=== PATIENT | male | born 1960 | race African-American/Black ===

== ENCOUNTER 2017-10-21 06:05 | Inpatient (IN) | payer BC ==
[~2017-10-21] VITALS: Ht 188 cm; Wt 159.2 kg
[2017-10-21] VITALS (82 sets, daily range): BP systolic 62–161; BP diastolic 13–107
--- NOTE | ~2017-10-21 | DEA ---
[facility] [place] [address] SUMMARY Name: MALISSA GUTIERREZ Room #: 236-P [facility] IN M.R.#: [id number] Admission: 10/21/17 Attend Phys: Gerson Johnson MD Discharge: 10/21/17 Date of : 62 Report #: [id number] THIS REPORT FOR: //name// CC: Rancho Johnson DATE OF SERVICE: 10/21/2017 DISCHARGE/ SUMMARY DIAGNOSES: 1. Severe sepsis. 2. Acute renal failure. 3. Acute respiratory failure. 4. Hemoptysis. 5. Coronary artery disease. 6. History of congestive heart failure in the past. 7. History of diabetes. 8. Hypernatremia. 9. Pneumonitis. CONSULTANTS: Dr. Macdonald from pulmonary and Dr. Méndez from infectious disease. HOSPITAL COURSE: The patient is a 57-year-old male with history of hypertension, diabetes, congestive heart failure, coronary artery disease, status post stent 6 years ago presented to the emergency room complaining of shortness of breath. Please look at the history and physical examination dictated by me. The patient has been sick for the last couple of days. He has been coughing of brown to black sputum. He also had a low grade fever, multiple members in the family had flu like symptoms. On admission, his blood pressure was low. His white count was 11.2. His initial ABG showed a pH of 7.374 and pO2 of 38. His chest x-ray showed pulmonary vascularity within normal limits, mild interstitial prominence. The patient was hydrated with IV fluid and then he was admitted to the ICU, started on broad spectrum antibiotic. He was evaluated by lamp decorator and infectious disease. The patient's respiratory status deteriorated and the patient was subsequently intubated. He also underwent a fiberoptic bronchoscopy with serial lavage of the left upper lobe secondary to hemoptysis. His hospital course was marked by severe leukopenia where his white count dropped to 1.7. He also had acute renal failure, creatinine going up to 4.1. He had severe metabolic and respiratory acidosis. The patient went into cardiac arrest several times and he was resuscitated by ACLS protocol. After several [facility] [address] [place] [address] SUMMARY Name: MALISSA GUTIERREZ Room #: 236-P [facility] IN M.R.#: [id number] Admission: 10/21/17 Attend Phys: Gerson Johnson MD Discharge: 10/21/17 Date of : 62 Report #: [id number] codes, the family decided to make him comfortable and the decided no more codes. The on 10/21/2017. <ELECTRONICALLY SIGNED> By: Gerson Johnson MD 11/08/17 1859 1417 1519 Gerson Johnson MD /nt
--- NOTE | ~2017-10-21 | HC ---
[facility] [place] [address] CONSULTATION Name: MALISSA GUTIERREZ Room #: 236-P [facility] IN M.R.#: [id number] Admission: 10/21/17 Attend Phys: Gerson Johnson MD Discharge: 10/21/17 Date of : 62 Report #: [id number] THIS REPORT FOR: //name// CC: Rancho Johnson REASON FOR PRESENTATION: Shortness of breath and hemoptysis. HISTORY OF PRESENT ILLNESS: A 57-year-old with past medical history of coronary artery disease post-stent, history of heart failure per the , diabetes mellitus, hypertension. No known previous kidney problems per the family. He had been feeling well in the last couple of days. This has progressed. He started to have shortness of breath associated with significant hemoptysis and low grade temperature. mentioned that there had been some flu-like illness running in the family. No reported nausea or vomiting. From the renal perspective, she is not aware of any previous kidney problems; however, she tells me that he has been on multiple heart failure medications including Aldactone, hydrochlorothiazide, besides some other medications. When he presented to the Emergency Room, he was hypoxic. He was also hypotensive and was found to have an elevated creatinine at 3.2 mandating a Nephrology consultation. ALLERGIES: None. PAST MEDICAL HISTORY: 1. Diabetes mellitus. 2. Hypertension. 3. Coronary artery disease. 4. Status post cardiac catheterization and stent. 5. Heart failure with unknown ejection fractions. MEDICATIONS: 1. Losartan. 2. K-Dur. 3. Naproxen. 4. Janumet. 5. Plavix. 6. Aldactone. 7. Aspirin. 8. Coreg. 9. Lasix. 10. Invokana. SOCIAL HISTORY: Denies alcohol or drug abuse. He quit smoking 20 years ago and back to smoking couple of months ago. FAMILY HISTORY: Significant for hypertension and diabetes mellitus. [facility] [address] [place] [address] CONSULTATION Name: MALISSA GUTIERREZ Room #: 236-P [facility] IN ..#: [id number] Admission: 10/21/17 Attend Phys: Gerson Johnson MD Discharge: 10/21/17 Date of : 62 Report #: [id number] REVIEW OF SYSTEMS: CONSTITUTIONAL: As per the history of present illness. CARDIOVASCULAR: As per the history of present illness. PULMONARY: As per the history of present illness. GASTROINTESTINAL: Decreased p.o. intake. GENITOURINARY: No frequency, no urgency. NEUROLOGICAL: No numbness, no weakness. SKIN: No rash or ulcerations. PHYSICAL EXAMINATION: GENERAL: The patient is on BiPAP. VITAL SIGNS: Blood pressure is marginal at 85/51. Pulse rate is 100. HEAD AND NECK: No jugular venous distention. CHEST: Decreased air entry bilaterally. CARDIOVASCULAR: No rub detected. ABDOMEN: Soft, nontender. LOWER EXTREMITIES: No edema. IMAGES: Reviewed. There is some sort of bilateral lower lobe infiltrates. LABORATORY VALUES: Reviewed. White blood cell count 11.1. Chemistry revealed sodium of 126, potassium of 5, chloride of 91, BUN of 32, creatinine of 3.1, blood sugar of 553. ASSESSMENT, IMPRESSION AND PLAN: 1. Acute kidney injury. 2. Respiratory failure. 3. Hyperkalemia. 4. Hypotension with sepsis. 5. History of heart failure. 6. History of coronary artery disease. 7. Blood sugar out of control. 8. We will start investigations for the acute kidney injury with appropriate imaging and laboratory values. 9. This is likely due to hypotension while taking numerous blood pressure medications, potassium, Janumet, naproxen. 10. Stop offending any nephrotoxic agents. 11. Blood pressure support. 12. Septic workup. 13. Appropriate antibiotic. 14. Follow cultures. 15. Strict input and output. 16. We will continue to follow along and adjust the medications and the treatment plans accordingly. 17. [place]bt[place] [address] CONSULTATION Name: MALISSA GUTIERREZ Room #: 236-P [facility] IN M.R.#: [id number] Admission: 10/21/17 Attend Phys: Gerson Johnson MD Discharge: 10/21/17 Date of : 62 Report #: [id number] 18. Obtain cardiac echo. Very sick and ill patient and condition might deteriorate at any point. <ELECTRONICALLY SIGNED> By: Paty Herman MD 10/25/17 0953 1058 1239 Paty Herman MD /ernesto
--- NOTE | ~2017-10-21 | HC ---
[facility] [place] [address] CONSULTATION Name: MALISSA GUTIERREZ Room #: 236-P [facility] IN M.R.#: [id number] Admission: 10/21/17 Attend Phys: Gerson Johnson MD Discharge: Date of : 62 Report #: [id number] THIS REPORT FOR: //name// CC: Rancho Johnson REASON FOR CONSULTATION: I was asked to evaluate concerning bilateral pulmonary infiltrates and respiratory failure. HISTORY OF PRESENT ILLNESS: The patient was a 57-year-old with underlying history of coronary artery disease, hypertension, diabetes. Over the past 3 days, he has had increasing cough, shortness of breath and dark colored sputum. His family members have also been ill with upper respiratory tract infection symptoms. No documented fever. No pleuritic chest pain. Progressive dyspnea necessitated evaluation in the Emergency Room. Here, he had bilateral basilar interstitial changes. He developed respiratory failure, now intubated. It is noted at the time of intubation, he had carissa bloody sputum. He underwent bronchoscopy. This did not clear. I discussed the case with Pulmonary Medicine following the bronchoscopy. Hemodynamically, the patient was stable prior to his bronchoscopy, now is running pressors. Since admission, the patient has been hypotensive and tachycardic. He is receiving fluid resuscitation. He was dehydrated initial with a creatinine of 3. His initial hemoglobin was 13.9. By the time I saw him, he was already intubated. Discussed with the patient's family and Pulmonary Medicine. He has had no travel. No HIV risk factors noted. ALLERGIES: None known. MEDICATIONS: As noted on his MAR, was given azithromycin, ceftriaxone. Previously was on losartan, potassium, hydrochlorothiazide, Naprosyn, carvedilol, Janumet, atorvastatin, Plavix, aspirin, spironolactone, Lexapro, glimepiride, omeprazole, Lasix, lorazepam, tramadol, Invokana. PAST MEDICAL HISTORY: Coronary artery disease, congestive heart failure, hypertension, diabetes. FAMILY HISTORY: Noncontributory. SOCIAL HISTORY: Past smoker, no significant alcohol intake. REVIEW OF SYSTEMS: No nausea, vomiting, diarrhea, dysuria or frequency. PHYSICAL EXAMINATION: VITAL SIGNS: He is afebrile, blood pressure was 85/50, heart rate 100, FiO2 is 40%. GENERAL: He was sedated. Moderately obese. SKIN: Unremarkable. [facility] [address] [place] [address] CONSULTATION Name: MALISSA GUTIERREZ Room #: 236-P [facility] IN .R.#: [id number] Admission: 10/21/17 Attend Phys: Gerson Johnson MD Discharge: Date of : 62 Report #: [id number] LYMPH: Unremarkable. No peripheral emboli. HEENT: Conjunctivae unremarkable. Mouth was orally intubated. He had bloody secretions in his endotracheal tube and his nasogastric tube. NECK: Supple. LUNGS: Coarse bilaterally. HEART: Regular, without murmur, tachycardic. No rub or gallop. ABDOMEN: Soft, nontender, no hepatosplenomegaly or mass appreciated. EXTREMITIES: Unremarkable. No evidence of peripheral emboli. LABORATORY STUDIES: Sodium 126, potassium 5, bicarbonate 23, creatinine 3.1. Liver function test normal. ALT 28. Lactate 3.2. Troponin negative. BNP was 714, hemoglobin 13.9, white count was 11.1 with 72% segs, 7% bands, 4% lymphs, 16% monocytes, platelet count 157,000. Urinalysis, 3+ glucose. ABG on 100% showed a pO2 of 98, pCO2 of 58, pH 7.14. Renal ultrasound negative. Chest x-ray, bilateral interstitial infiltrates, mostly in the bases. IMPRESSION: Bilateral pulmonary infiltrates with hemoptysis and respiratory failure. He has hypotension and findings consistent with capillaritis. He is anticoagulated, having been on Plavix, aspirin and nonsteroidal anti-inflammatory. Would be concerned about viral respiratory infection, most likely given his presentation. Vasculitis would also be considered. Given this scenario of diabetes, hypertension and what I would suspect dehydration, most likely explains his renal failure, but pulmonary renal syndrome would also be a consideration. He does have underlying coronary disease with no evidence of ischemia at this time. Would recommend further workup including vasculitis workup, human immunodeficiency virus, viral respiratory panel as well as full cultures from his bronchoscopy for bacteria, Legionella, fungus and AFB. We will continue with broad spectrum antibiotic coverage adjusted for his renal failure. Serial laboratory studies including CBC and chemistry. I have discussed the case with Pulmonary Medicine, the patient's family and nursing staff. <ELECTRONICALLY SIGNED> By: Jc Méndez MD 10/21/17 1949 1422 1738 Jc Méndez MD /nt
--- NOTE | ~2017-10-21 | EKG ---
[address] [address] ELECTROCARDIOGRAM REPORT Name: MALISSA GUTIERREZ Room #: 236-P ADM IN M.R.#: [id number] Admission: 10/21/17 Attend Phys: Gerson Johnson MD Discharge: Date of : 62 Report #: [id number] THIS REPORT FOR: //name// [facility] Test Date: 2017-10-21 Test Time: 15:30:50 Pat Name: MALISSA GUTIERREZ Department: Room: 236 P Gender: M Library Technical Assistant: ag : 1960 Requested By: Ant Santos Order Number: [id number] MD: Keaton Gallegos Measurements Intervals [place] Rate: 122 P: 83 [place]: 147 QRS: 8 QRSD: 131 T: 261 QT: 275 QTc: 392 Interpretive Statements Sinus tachycardia vs Atrial tachycardia Electronically Signed On 10-21-2017 19:00:58 MANAGER PATIENT by Keaton Gallegos [email or web address] <ELECTRONICALLY SIGNED> By: Keaton Gallegos MD 10/21/17 1900 1530 1530 Keaton Gallegos MD /LOW
--- NOTE | ~2017-10-21 | EKG ---
[place] [address] [facility] [place] [address] ELECTROCARDIOGRAM REPORT Name: MALISSA GUTIERREZ Room #: 236-P ADM IN M.R.#: [id number] Admission: 10/21/17 Attend Phys: Gerson Johnson MD Discharge: Date of : 62 Report #: [id number] THIS REPORT FOR: //name// [facility] ED Test Date: 2017-10-21 Test Time: 06:29:00 Pat Name: MALISSA GUTIERREZ Department: Room: 236 Gender: M Conveyor Monitor: PINO : 1960 Requested By: Radha Pacheco Order Number: [id number] MD: Siva Krause Measurements Intervals [place] Rate: 106 P: 50 NM: 175 QRS: 27 QRSD: 126 T: 5 QT: 356 QTc: 473 Interpretive Statements Sinus tachycardia Nonspecific intraventricular conduction delay Baseline wander in lead(s) V4 No previous ECG available for comparison Electronically Signed On 10-21-2017 10:16:21 MULTIPLE PRESSURE RIVETER OPERATOR by Siva Krause [email or web address] <ELECTRONICALLY SIGNED> By: Siva Krause MD, [facility] 10/21/17 1016 0629 8 Siva Krause MD, FACC /EPI
--- NOTE | ~2017-10-21 | H ---
[facility] [place] [address] HISTORY AND PHYSICAL Name: MALISSA GUTIERREZ Room #: 236-P ADM IN M.R.#: [id number] Admission: 10/21/17 Attend Phys: Gerson Johnson MD Discharge: Date of : 62 Report #: [id number] THIS REPORT FOR: //name// CC: Rancho Johnson DATE OF SERVICE: 10/21/2017 CHIEF COMPLAINT: Cough, expectoration and shortness of breath. HISTORY OF PRESENT ILLNESS: The patient is a 57-year-old male with history of hypertension, coronary artery disease status post stent 6 years ago, history of diabetes and hypertension, and history of CHF, who presented to the Emergency Room complaining of shortness of breath. The patient has been sick over the last 2 to 3 days, he has had cough with brown to black sputum. He has had some low-grade fever. Apparently, multiple family members have been sick with flu-like illness. The patient denies any dizziness. No chest pain. No nausea or vomiting, no diarrhea. He does have history of coronary artery disease and had a stent 6 years ago. The patient last saw a poured concrete wall technician 3 years ago. He does have history of CHF and has been on multiple medications including Aldactone, hydrochlorothiazide and Lasix. The patient has not had an echocardiogram in several years. He does have history of sleep apnea and uses BiPAP at home. When EMS arrived, he was hypoxic. He was saturating around 70% on room air and he was placed on a BiPAP and was given DuoNeb and 80 mg of Lasix by the EMS. On arrival to the Emergency Room, the patient was noticed to be markedly hypotensive. His initial blood pressure was 94/55, then it dropped to 73/51. PAST MEDICAL HISTORY: Significant for: 1. Hypertension. 2. Diabetes. 3. Coronary artery disease status post stent 6 years ago. 4. History of CHF. 5. The patient denies any kidney disease. No history of any stroke. No history of any cancer. No peptic ulcer disease or bleeding disorder. ALLERGIES: No known drug allergy. HOME MEDICATIONS: Include losartan, K-Dur, hydrochlorothiazide, naproxen, Coreg, Janumet, Plavix, atorvastatin, Aldactone, aspirin, Lexapro, glimepiride, Protonix, Lasix 40 once a day, lorazepam p.r.n., tramadol and Invokana. Please look at the nursing documentation for dosages. SOCIAL HISTORY: He stopped smoking around 20 years ago, then he started smoker about 6 months ago. Apparently, he stopped smoking 2 days ago. No history of [address] [address] HISTORY AND PHYSICAL Name: MALISSA GUTIERREZ Room #: 236-P [facility] IN M.R.#: [id number] Admission: 10/21/17 Attend Phys: Gerson Johnson MD Discharge: Date of : 62 Report #: [id number] alcohol abuse or illicit drug abuse. The patient lives with his . His is at bedside. FAMILY HISTORY: Significant for hypertension and diabetes. REVIEW OF SYSTEMS: CONSTITUTIONAL: No recent weight loss, weight gain. He has had some low-grade fever. EYES: No change in vision. THROAT: Denies any sore throat. CARDIOVASCULAR: No chest pain. No palpitation, no dizziness. RESPIRATORY: As above. GASTROINTESTINAL: No nausea, vomiting, abdominal pain. GENITOURINARY: No dysuria, hematuria. NEUROLOGIC: No focal numbness or weakness of the extremity. PSYCHIATRIC: No anxiety or depression. The 12-point review of system is negative other than the positive and negative dictated in the history of present illness and the review of system. PHYSICAL EXAMINATION: VITAL SIGNS: Blood pressure 76/45, heart rate of 100 per minute. He is breathing 30 per minute. GENERAL: The patient is awake and alert. He is in [id number] respiratory distress, appears very anxious. EYES: Pupils equal, reactive to light. Throat: He has a dry oral mucosa. NECK: Supple, no JVD, no bruit, no lymphadenopathy. CARDIOVASCULAR SYSTEM: S1, S2, no S3. There is systolic murmur. CHEST: Bilateral air entry present, coarse breath sounds, few scattered wheezes noted. ABDOMEN: Soft, bowel sounds present, no mass, no organomegaly, no tenderness. PERIPHERY: No pedal edema. No calf tenderness. Dorsalis pedis 1+. NEUROLOGICAL: No gross motor or sensory deficit. LABORATORY DATA: Reviewed. White count is 11.1, hemoglobin 13.8, differential is 72% segs, platelet is 151. ABG showed a pH of 7.374, pCO2 of 38, pO2 is 82. Chemistry showed sodium of 126, potassium is 5, BUN and creatinine are markedly elevated at 32 and 3.1. Glucose was 553. Lactic acid is 2.9. Troponin is less than 0.04. BNP 714. EKG showed sinus tachycardia, nonspecific intraventricular conduction delay. IMAGING: Chest x-ray showed pulmonary vascularity within normal limits. There is mild interstitial prominence in the middle and the lower lungs bilaterally, which could be interstitial pneumonitis. ASSESSMENT AND PLAN: [facility] [address] [place] [address] HISTORY AND PHYSICAL Name: MALISSA GUTIERREZ Room #: 236-P ADM IN M.R.#: [id number] Admission: 10/21/17 Attend Phys: Gerson Johnson MD Discharge: Date of : 62 Report #: [id number] 1. Acute respiratory failure secondary to pneumonitis. The patient will be placed on BiPAP. Pulmonary will be consulted. Pneumonitis, the patient will be on IV ceftriaxone and Zithromax. We will order sputum culture and sensitivity and also blood cultures. We will also check on influenza. We will repeat a chest x-ray in the morning. 2. History of hypertension/sepsis The patient will be hydrated with IV fluids. We will start him on Levophed if his systolic blood pressure does not improve with hydration. The patient will be admitted to the ICU. We will repeat his lactic acid at 3 hours. 3. History of congestive heart failure, no recent echocardiogram. I went ahead and ordered an echocardiogram and also do serial troponin. We will consult poured concrete wall technician. 4. History of coronary artery disease status post stent 6 years ago. We will repeat a troponin in 3 hours. 5. History of diabetes. Blood sugar uncontrolled at present, start him on insulin drip at present. 6. Hyponatremia secondary to dehydration/hyperglycemia. We will continue with normal saline and recheck his labs in the morning. 7. Acute renal failure, likely prerenal secondary to dehydration along with use of diuretics. We will hydrate with IV fluids. Renal ultrasound has been requested. We will consult Nephrology. I have also ordered a bladder scan. 8. Deep venous thrombosis prophylaxis. He will be on heparin for DVT prophylaxis. Treatment plan has been explained to the patient and the patient's at bedside in detail. <ELECTRONICALLY SIGNED> By: Gerson Johnson MD 10/21/17 1248 0929 0959 Gerson Johnson MD /nt
--- NOTE | ~2017-10-21 | HC ---
[facility] [place] [address] CONSULTATION Name: MALISSA GUTIERREZ Room #: 236-P [facility] IN M.R.#: [id number] Admission: 10/21/17 Attend Phys: Gerson Johnson MD Discharge: 10/21/17 Date of : 62 Report #: [id number] THIS REPORT FOR: //name// CC: Rancho Johnson HISTORY OF PRESENT ILLNESS: The patient is a 57-year-old gentleman with diabetes and tobacco dependency. He has history of coronary artery disease with remote stenting by Dr. Perez about 6 years ago. He now presents with a several day history of fevers, productive cough; Yesterday, he had hemoptysis. Multiple family members have had influenza. He was seen in the emergency department with respiratory distress and hypoxemia. He denies chest heaviness or pressure. It has been a number of years since he has been seen by Dr. Perez. There has been no recent orthopnea, paroxysmal nocturnal dyspnea or lower extremity edema. He has had intermittent chest pain with coughing, but other than this, no symptoms to suggest angina. No recent medicine changes. CURRENT MEDICATIONS: Include losartan 100 mg daily, potassium 20 mEq daily, hydrochlorothiazide 12.5 mg daily, carvedilol 25 mg twice daily, Janumet 100/1000 one tablet daily, atorvastatin 40 mg daily, Plavix 75 mg daily, spironolactone 25 mg daily and aspirin, Lexapro 20 mg daily, glimepiride 4 mg daily, Nexium 40 mg daily, Lasix 40 mg daily, tramadol, and Invokana 300 mg daily. PAST MEDICAL HISTORY: Medical records have been reviewed and include a history of coronary artery disease with remote stenting, sleep apnea for which he uses bypass, hypertension, diabetes, and history of congestive heart failure. SOCIAL HISTORY: Quit smoking about 15 years ago, he started up about 6 months ago. Lives with his . FAMILY HISTORY: Notable for hypertension and diabetes. REVIEW OF SYSTEMS: All systems negative except as that noted above. PHYSICAL EXAMINATION: GENERAL: Reveals an alert gentleman, he is in respiratory distress. VITAL SIGNS: Blood pressure is 85/51, heart rate of 100 and regular, temperature is 97.4 degrees, 6 feet 2 inches tall, 340 pounds. HEENT: There are neither xanthelasma, subcutaneous xanthomata, oral mucosal or digital cyanosis or kyphoscoliosis present. CHEST: Reveals bilateral rhonchi. CARDIAC: Reveals distant regular rate and rhythm with normal S1, S2. ABDOMEN: Soft, obese and nontender. EXTREMITIES: Without cyanosis, clubbing, or edema. Radial pulses are 2+. NEUROLOGIC: He is alert with a nonfocal exam. [facility] [address] [place] [address] CONSULTATION Name: MALISSA GUTIERREZ Room #: 236-P [facility] IN M.R.#: [id number] Admission: 10/21/17 Attend Phys: Gerson Johnson MD Discharge: 10/21/17 Date of : 62 Report #: [id number] LABORATORY DATA: Sodium 126, potassium 5.0, creatinine 3.1, and glucose 553. Troponin 0. ProBNP is 714. White count 11,000, hemoglobin 13.9, hematocrit 41, platelet count 151 with 72% neutrophils. Chest x-ray demonstrates normal pulmonary vascularity, normal heart size. There is interstitial prominence. Blood gas 7.16, pCO2 58, pO2 98, lactate 3.71. IMPRESSION: 1. Septic shock, suspect pulmonary source. 2. Coronary artery disease with remote stenting. 3. Respiratory failure; recent hemoptysis. 4. Renal failure. 5. Tobacco dependency. 6. Sleep apnea. 7. Severe hyponatremia. RECOMMENDATIONS: 1. Echocardiogram with Doppler. 2. Obtain details of coronary stenting procedure from [facility], this has been requested. 3. At this point, I do not suspect volume overload/congestive heart failure as the etiology of his hypoxemia if anything appears volume depleted. I have discussed these issues with Dr. Johnson, I agree with ID, pulmonary and renal evaluations as had been ordered. Thank you for asking me to participate in the care of this critically ill gentleman. <ELECTRONICALLY SIGNED> By: Siva Krause MD, FACC 10/23/17 0853 [id number] 1551 Siva Krause MD, FACC /nt
--- NOTE | ~2017-10-21 | P ---
[facility] [place] [address] PROCEDURE REPORT Name: MALISSA GUTIERREZ Room #: 236-P [facility] IN M.R.#: [id number] Admission: 10/21/17 Attend Phys: Gerson Johnson MD Discharge: 10/21/17 Date of : 62 Report #: [id number] THIS REPORT FOR: //name// CC: Rancho Johnson DATE OF SERVICE: 10/21/2017 PROCEDURE: Fiberoptic bronchoscopy with serial lavage of the left upper lobe. 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 PROCEDURE NOTATION: The patient was already sedated on mechanical ventilatory support. Bronchoscopy equipment was brought to the bedside. Discussed with who gave verbal consent. Once accomplished, the patient received 1% lidocaine instilled down the endotracheal tube to provide topical anesthesia. Fiberoptic bronchoscope was passed down the endotracheal tube until the distal trachea was visualized. Endotracheal tube was in good position. Trachea appeared patent with no significant disease. The airways were surveyed. There was no endobronchial mass or other lesion. There was some diffuse blood noted throughout the airways, but no focal source of bleeding. Left upper lobe was chosen as site for lavage. Sequential alveolar lavage was performed with diminished bloody return with subsequent lavages, but never cleared. Specimen sent for microbiologic and cytologic tests. The patient tolerated well. No noted complications. IMPRESSION: Hemoptysis without clearing with subsequent alveolar lavages of the left upper lobe, somewhat worrisome for an alveolar hemorrhage syndrome, although findings did not show more bloody return with subsequent lavages. PLAN: 1. Await microbiologic and cytologic tests. 2. Consider high-dose systemic steroids if declines. 3. Await high resolution CT scan of the chest. 4. Await autoimmune serologies. Nothing for malignancy seen on bronchoscopy. <ELECTRONICALLY SIGNED> By: Brian Macdonald MD 10/25/17 1726 1358 1737 Brian Macdonald MD /nt
--- NOTE | ~2017-10-21 | P ---
[facility] [place] [address] PROCEDURE REPORT Name: MALISSA GUTIERREZ Room #: 236-P [facility] IN M.R.#: [id number] Admission: 10/21/17 Attend Phys: Gerson Johnson MD Discharge: 10/21/17 Date of : 62 Report #: [id number] THIS REPORT FOR: //name// CC: Rancho Johnson DATE OF SERVICE: 10/21/2017 PROCEDURE: Emergent intubation. INDICATION: Hypercapnic, hypoxemic respiratory failure and severe hemoptysis. PROCEDURE NOTATION: Called to bedside as the patient was intolerant to BiPAP, is developing worsening hypoxemia and hypercapnia, in obvious respiratory distress with significant hemoptysis. Emergent intubation was indicated. Discussed with the , the patient received 40 mg of etomidate for relaxation. Once accomplished using a MAC 4 blade, a grade 1 view of the vocal cords was noted. Significant blood noted coming from the vocal cords and in the pharynx. This was aspirated using the anchor. A size 7.5 endotracheal tube was easily advanced to 23 cm at the teeth without difficulty. Significant blood coming from the airway. Positive easy cap color change was noted. Endotracheal tube secured in place. Bilateral breath sounds noted. Chest x-ray pending at the time of dictation. <ELECTRONICALLY SIGNED> By: Brian Macdonald MD 10/25/17 1726 1256 1701 Brian Macdonald MD /ernesto
--- NOTE | ~2017-10-21 | HC ---
[facility] [place] [address] CONSULTATION Name: MALISSA GUTIERREZ Room #: 236-P [facility] IN M.R.#: [id number] Admission: 10/21/17 Attend Phys: Gerson Johnson MD Discharge: 10/21/17 Date of : 62 Report #: [id number] THIS REPORT FOR: //name// CC: Rancho Johnson MD DATE OF SERVICE: 10/21/2017 PULMONARY CONSULTATION REFERRING PROVIDER: Gerson Johnson M.D. REASON FOR CONSULTATION: Respiratory failure. CHIEF COMPLAINT: Cough and shortness of breath. HISTORY OF PRESENT ILLNESS: Our group was asked to see the patient in consultation while hospitalized in [facility]. I was asked to see the patient while in ICU. He is a 57-year-old male who is a reasonable historian, although very tachypneic, on BiPAP, with some difficulty getting history. Past pulmonary history is insignificant. He has a remote history of tobacco use, quitting 15 years ago, but no chronic pulmonary disease that he is aware of. He does carry a history of "congestive heart failure of unclear etiology". He denies any prior myocardial infarctions. Over the past 3 days, he has had some increasing shortness of breath and cough productive of what he described as dark-colored sputum, more red-brown. and other family members at home have also been ill, but not this severe and they have been treating themselves with fnbd-vcr-xwnuyty medications. Dyspnea got severe enough. He presented to the Emergency Department this morning and was found to be hypotensive in acute renal insufficiency, subsequently placed on BiPAP due to respiratory distress, given a dose of Rocephin and azithromycin. Initial influenza screen was negative. Chest x-ray showed some diminished lung volumes and some mild cardiomegaly, possible increased interstitial markings suggestive of interstitial pneumonitis. He is now in the ICU on BiPAP, resting reasonably comfortably at this time. ALLERGIES: None known. PAST MEDICAL HISTORY: 1. Congestive heart failure, exactly etiology and diagnosis unclear. He has been followed by Cardiology, but no recent echocardiograms. 2. Hypertension. 3. Diabetes mellitus type 2. 4. Coronary artery disease with stent placement. [address] [address] CONSULTATION Name: AMLISSA GUTIERREZ ENOC Room #: 236-P [facility] IN M.R.#: [id number] Admission: 10/21/17 Attend Phys: Gerson Johnson MD Discharge: 10/21/17 Date of : 62 Report #: [id number] MEDICATIONS: Include: 1. Losartan. 2. Potassium. 3. Hydrochlorothiazide. 4. Naprosyn. 5. Carvedilol. 6. Janumet. 7. Atorvastatin. 8. Plavix. 9. Spironolactone. 10. Aspirin. 11. Lexapro. 12. Glimepiride. 13. Omeprazole. 14. Lasix. 15. Lorazepam. 16. Tramadol. 17. Invokana. SOCIAL HISTORY: Remote tobacco use, quitting about 15 years ago. No significant alcohol consumption. No environmental exposures in the workplace. FAMILY HISTORY: Significant for hypertension and diabetes mellitus. REVIEW OF SYSTEMS: CONSTITUTIONAL: Denies any fever. He has had some chills and perhaps some sweats. ENT: Some upper respiratory congestion with sinus congestion. No dysphagia. CARDIOVASCULAR: No chest pains or palpitations or lower extremity edema. GASTROINTESTINAL: Notes some diminished appetite, but no nausea or vomiting. Notes diarrhea. GENITOURINARY: No dysuria, no frequency or hematuria. INTEGUMENT: Denies any rash. MUSCULOSKELETAL: No new joint pains or swellings or myalgias reported. PHYSICAL EXAMINATION: VITAL SIGNS: Temperature 36.3, pulse 100, respiratory rate in the 30s and blood pressure is 85/51. GENERAL: This is a pleasant middle-aged male, who does not appear in any distress, other than some moderate respiratory difficulties. ENT: Clear oropharynx. No thrush. NECK: Supple. No lymphadenopathy. LUNGS: Coarse rhonchi heard both in inspiration and expiration throughout. CARDIOVASCULAR: Heart is regular. I cannot appreciate any murmurs, although it is difficult to auscultate due to respiratory sounds. [facility] [address] [place] [address] CONSULTATION Name: MALISSA GUTIERREZ Room #: 236-P [facility] IN M.R.#: [id number] Admission: 10/21/17 Attend Phys: Gerson Johnson MD Discharge: 10/21/17 Date of : 62 Report #: [id number] ABDOMEN: Soft, nontender. No masses, no hepatosplenomegaly noted. EXTREMITIES: Warm, 2+ pulses noted in the periphery. There is no edema. INTEGUMENT: No rash seen. LABORATORY DATA: White blood cell count 11,000, hemoglobin 14, hematocrit 41 and platelet count of 151,000 with 7% band forms. Sodium is 126, potassium 5.0, chloride 91, bicarbonate 23, BUN 32, creatinine 3.1 and glucose 553. Troponin was negative. Arterial blood gas done on 4 liters nasal cannula revealed pH of 7.37, pCO2 of 38, pO2 of 82 and bicarbonate 22. Chest x-ray as described in the HPI. Rapid influenza screen, I do not see a rapid influenza screen performed looking through the laboratories. IMPRESSION: 1. Severe sepsis evidenced by acute renal and respiratory insufficiencies, with associated hypotension, tachycardia, tachypnea and elevated white blood cell count with 7% band forms, likely due to respiratory source. 2. Lower respiratory infection, possibly influenza. 3. Acute hypoxemic respiratory failure. 4. Acute renal failure. 5. History of coronary artery disease. SUGGESTIONS: 1. Sepsis protocol. 2. Continue Rocephin and azithromycin. 3. Systemic steroids with taper. 4. Bronchodilators. 5. Await sputum and blood cultures. 6. Nasal swab for influenza screen and respiratory viral panel. 7. Urinary pneumococcal and Legionella antigen test. 8. Check echocardiogram. 9. Follow chest radiographs. 10. Continue to support with noninvasive positive pressure ventilation via BiPAP as tolerated. 11. Better diabetic control, may need insulin drip as part of his sepsis protocol management. 12. Renal consult regarding hyponatremia and acute renal insufficiency. 13. Hold his diuretics at this time. 14. Additional recommendations to follow. Discussed with nursing and the patient at bedside. Total critical care 40 minutes, not including any procedures to this point. <ELECTRONICALLY SIGNED> By: Brian Macdonald MD 10/25/17 1726 1034 1305 Brian Macdonald MD /nt
--- NOTE | ~2017-10-21 | CNG ---
[facility] [place] [address] CYTO-NONGYN REPORT PROCEDURE Name: MALISSA GUTIERREZ Room #: 236-P [facility] IN M.R.#: [id number] Admission: 10/21/17 Date of : 62 Discharge: 10/21/17 Report #: [id number] Path Case #: [id number] CYTOPATHOLOGY REPORT COLLECTION DATE: 10/21/2017 RECEIVED DATE: 10/22/2017 SUBMITTING PHYS: Dr. Brian Macdonald OTHER PHYS: Dr. Gerson Kirk CLINICAL HISTORY: Hypoxia, hyperglycemia, pneumonitis SPECIMEN(S) RECEIVED: A.Bronchoalveolar lavage, Left upper lobe * * * * * * * * * * * * FINAL DIAGNOSIS: A. Bronchoalveolar lavage, Left upper lobe: - No malignant cells identified. - Few bronchial epithelial cells, alveolar macrophages, and squamous cells identified in a background of bacteria and mucous.. PATHOLOGIST: Darell Levy M.D. REPORT ELECTRONICALLY SIGNED BY: Darell Levy M.D. DATE/TIME: 10/23/2017 10:24 * * * * * * * * * * * * GROSS PATHOLOGY: A. Bronchoalveolar lavage, Left upper lobe: The specimen is submitted unfixed, labeled "Malissa Gutierrez". Received by the Cytology Department is 19 mL of cloudy red fluid. One ThinPrep slide was prepared. (lg1.2.2017) DRY PLASTERER HELPER(S): LISBETH [place](ASCP) INITIAL CPT CODE(S): A; 00068 Professional services performed by [facility] at [facility] [address], [place] [address] Technical services performed by [facility] at [address] [place] [address]., [address], [place] [address]. [facility] [address] [place] [address], [address] [facility] [address] [place] [address] CYTO-NONGYN REPORT PROCEDURE Name: BRENDAMALISSABELLA STUBBS Room #: 236-P [facility] IN .R.#: [id number] Admission: 10/21/17 Date of : 62 Discharge: 10/21/17 Report #: [id number] Path Case #: [id number] [place] [address] PHONE: [phone] DIRECTOR: Hira Palma M.D. * * * END OF REPORT * * *
[2017-10-21] MEDS ORDERED: COZAAR 50 MG TA50 M2 PO (06:22)
[2017-10-21] MEDS ORDERED: POTASSIUM20 PO (06:23)
[2017-10-21] MEDS ORDERED: HYDROCHLOROTH12.5 M1 PO (06:23)
[2017-10-21] MEDS ORDERED: NAPROSYN500 MG PO (06:24)
[2017-10-21] MEDS ORDERED: COREG6.25 MG PO (06:24)
[2017-10-21] MEDS ORDERED: JANUMET XR 1001 EACH PO (06:25)
[2017-10-21] MEDS ORDERED: ATORVASTATIN CA40 MG PO (06:26)
[2017-10-21] MEDS ORDERED: PLAVIX 75 MG TA75 M1 PO (06:26)
[2017-10-21 06:27] LABS: BE(vivo) -3.1 mmol/L (-2 to +3); HCO3 21.7 mmol/L (22.0-26.0); pH 7.374 (7.360-7.450); sO2 95.9 % (92.0-98.0)
[2017-10-21] MEDS ORDERED: ALDACTONE25 MG PO (06:27)
[2017-10-21] MEDS ORDERED: ASPIRIN81 M2 PO (06:31)
[2017-10-21] MEDS ORDERED: LEXAPRO20 MG PO (06:34)
[2017-10-21] MEDS ORDERED: GLIMEPIRIDE4 MG PO (06:34)
[2017-10-21] MEDS ORDERED: NEXIUM40 MG (06:36)
[2017-10-21] MEDS ORDERED: LASIX 40 MG TAB40 M2 PO (06:38)
[2017-10-21] MEDS ORDERED: ATIVAN0.5 MG PO (06:39)
[2017-10-21] MEDS ORDERED: TRAMADOL 50 MG50 MG PO (06:40)
[2017-10-21] MEDS ORDERED: INVOKANA300 MG PO (06:41)
[2017-10-21 07:05] LABS: HEMATOCRIT 41.3 % (42.0-52.0); HEMOGLOBIN 13.9 gm/dL (14.0-18.0); MCHC 33.5 g/dL (28.0-37.0); MCV 86.4 fL (80.0-100.0); PLATELET COUNT 151 thou/uL (150-400); RBC 4.79 mil/uL (4.50-6.00); RDW 14.5 % (10.5-14.5); WBC 11.1 thou/uL (4.0-11.0)
[2017-10-21 07:35] LABS: ANION GAP 12 mmol/L (7-16); BUN 32 mg/dL (7-18); CALCIUM 9.4 mg/dL (8.5-10.1); CHLORIDE 91 mmol/L (98-107); CO2 23 mmol/L (21-32); CREATININE 3.1 mg/dL (0.7-1.3); SODIUM 126 mmol/L (136-145); TROPONIN-I < 0.04 ng/mL (<0.06)
[2017-10-21 07:37] LABS: GLUCOSE 553 mg/dL (74-106)
[2017-10-21 07:47] LABS: ABSOLUTE NEUTROPHILS 8.8 thou/uL (1.4-8.2); ATYPICAL LYMPHS 1 %
[2017-10-21 07:48] LABS: LARGE PLATELETS OCCASIONAL; PLATELET ESTIMATE NORMAL
[2017-10-21 11:04] LABS: PROTIME 10.1 Seconds (9.3-11.4)
[2017-10-21 12:13] LABS: BE(vivo) -9.9 mmol/L (-2 to +3); HCO3 19.6 mmol/L (22.0-26.0); PCO2 58.2 mmHg (35.0-45.0); PO2 98.1 mmHg (80.0-100.0); sO2 95.3 % (92.0-98.0)
[2017-10-21 12:14] LABS: pH 7.146 (7.360-7.450)
[2017-10-21 12:22] LABS: URINE BILIRUBIN NEGATIVE (Negative); URINE BLOOD NEGATIVE (Negative); URINE CLARITY SL CLOUDY; URINE COLOR YELLOW; URINE GLUCOSE-RANDOM* 3+ (Negative); URINE KETONES NEGATIVE (Negative); URINE LEUKOCYTES-REFLEX NEGATIVE (Negative); URINE NITRITE-REFLEX NEGATIVE (Negative); URINE PROTEIN (DIPSTICK) TRACE (Negative); URINE UROBILINOGEN 0.2 E.U./dl (0.2-1.0)
[2017-10-21 12:47] LABS: ALBUMIN 2.7 g/dL (3.4-5.0); DIRECT BILIRUBIN 0.2 mg/dL (<0.1-0.3); SGOT 25 U/L (15-37); SGPT 28 U/L (30-65); TOTAL BILIRUBIN 0.6 mg/dL (<0.1-1.0); TOTAL PROTEIN 7.1 g/dL (6.4-8.2)
[2017-10-21 15:24] LABS: CALCIUM 8.4 mg/dL (8.5-10.1); CREATININE 3.7 mg/dL (0.7-1.3)
[2017-10-21 15:41] LABS: POTASSIUM 6.4 mmol/L (3.5-5.1)
[2017-10-21 16:07] LABS: BE(vivo) -15.8 mmol/L (-2 to +3); HCO3 18.5 mmol/L (22.0-26.0); PO2 72.3 mmHg (80.0-100.0)
[2017-10-21 16:08] LABS: PCO2 94.6 mmHg (35.0-45.0); pH 6.908 (7.360-7.450)
[2017-10-21 16:33] LABS: APTT 34.5 Seconds (24.5-32.8); D-DIMER 3.92 ug/mLFEU (0.19-0.50); INR 1.1; PROTIME 11.2 Seconds (9.3-11.4)
[2017-10-21 17:03] LABS: HCO3 15.6 mmol/L (22.0-26.0); PCO2 63.1 mmHg (35.0-45.0); PO2 62.7 mmHg (80.0-100.0); pH 7.011 (7.360-7.450); sO2 78.6 % (92.0-98.0)
[2017-10-21 17:32] LABS: HEMATOCRIT 38.5 % (42.0-52.0); HEMOGLOBIN 12.8 gm/dL (14.0-18.0); MCHC 33.2 g/dL (28.0-37.0)
[2017-10-21 17:34] LABS: MCH 29.3 pg (26.0-34.0); MCV 88.3 fL (80.0-100.0); PLATELET COUNT 134 thou/uL (150-400); RBC 4.36 mil/uL (4.50-6.00); RDW 15.1 % (10.5-14.5)
[2017-10-21 17:52] LABS: WBC 1.7 thou/uL (4.0-11.0)
[2017-10-21 17:56] LABS: ALBUMIN 1.7 g/dL (3.4-5.0); ANION GAP 13 mmol/L (7-16); BUN 35 mg/dL (7-18); CALCIUM 8.8 mg/dL (8.5-10.1); CHLORIDE 100 mmol/L (98-107); CO2 21 mmol/L (21-32); CREATININE 4.1 mg/dL (0.7-1.3); GLUCOSE 321 mg/dL (74-106); MAGNESIUM 2.3 mg/dL (1.8-2.4); PHOSPHORUS 9.7 mg/dL (2.5-4.9); POTASSIUM 5.5 mmol/L (3.5-5.1); SGOT 62 U/L (15-37); SGPT 42 U/L (30-65); SODIUM 134 mmol/L (136-145); TOTAL BILIRUBIN 0.3 mg/dL (<0.1-1.0); TOTAL PROTEIN 5.2 g/dL (6.4-8.2); TROPONIN-I < 0.04 ng/mL (<0.06)
[2017-10-21 18:41] LABS: ABSOLUTE NEUTROPHILS 0.8 thou/uL (1.4-8.2); ATYPICAL LYMPHS 3 %; METAMYELOCYTES 2 %
[2017-10-22 14:08] LABS: HIV ANTIBODY Non Reactive (Non Reactive)
[2017-10-24 08:07] LABS: GLOMERULR BASEM MEMBRN AB 4 units (0-20)
[2017-10-24 17:09] LABS: HISTOPLASMA MYCELIAL-ID Negative (Negative)
[2017-10-24 21:06] LABS: HISTOPLASMA MYCELIAL-CF Negative (Neg:<1:2)
[2017-10-24 23:09] LABS: ADENOVIRUS Negative (Negative); INFLUENZA A Negative (Negative); INFLUENZA B Positive (Negative); METAPNEUMOVIRUS Negative (Negative); PARAINFLUENZA 1 Negative (Negative); PARAINFLUENZA 2 Negative (Negative); PARAINFLUENZA 3 Negative (Negative); RHINOVIRUS Negative (Negative); RSV A Negative (Negative); RSV B Negative (Negative)
== END 2017-10-21 19:09 | DRG 853 ==
LOC: ER 06:05 → EROBS 08:09 → ICU 09:38
PROVIDERS: Emergency Medicine; Hospitalist; Internal Medicine; Internal Medicine Pulmonary Disease; Specialist
PROC: 0B9G8ZX Drainage of Left Upper Lung Lobe, Via Natural or Artificial Opening Endoscopic, Diagnostic (ICD-10-PCS; principal; 2017-10-21)
PROC: 5A09357 Assistance with Respiratory Ventilation, Less than 24 Consecutive Hours, Continuous Positive Airway Pressure (ICD-10-PCS; 2017-10-21)
PROC: 02H633Z Insertion of Infusion Device into Right Atrium, Percutaneous Approach (ICD-10-PCS; 2017-10-21)
PROC: B244YZZ Ultrasonography of Right Heart using Other Contrast (ICD-10-PCS; 2017-10-21)
PROC: 5A1935Z Respiratory Ventilation, Less than 24 Consecutive Hours (ICD-10-PCS; 2017-10-21)
PROC: 0BH17EZ Insertion of Endotracheal Airway into Trachea, Via Natural or Artificial Opening (ICD-10-PCS; 2017-10-21)
DX: A41.9 Sepsis, unspecified organism (principal); J18.9 Pneumonia, unspecified organism; J96.01 Acute respiratory failure with hypoxia; R65.21 Severe sepsis with septic shock; E87.1 Hypo-osmolality and hyponatremia; N17.9 Acute kidney failure, unspecified; R04.2 Hemoptysis; E87.2 Acidosis; I10 Essential (primary) hypertension; I50.9 Heart failure, unspecified; I25.10 Atherosclerotic heart disease of native coronary artery without angina pectoris; I77.6 Arteritis, unspecified; G47.33 Obstructive sleep apnea (adult) (pediatric); E86.0 Dehydration; E11.65 Type 2 diabetes mellitus with hyperglycemia; E87.5 Hyperkalemia; I95.9 Hypotension, unspecified; J22 Unspecified acute lower respiratory infection; Z79.01 Long term (current) use of anticoagulants; Z95.5 Presence of coronary angioplasty implant and graft; Z82.49 Family history of ischemic heart disease and other diseases of the circulatory system; Z83.3 Family history of diabetes mellitus; Z87.891 Personal history of nicotine dependence
CPT/HCPCS: 10078; 27000